=== PATIENT | female | born 1960 | race Caucasian/White ===

== ENCOUNTER 2018-12-30 19:53 | Emergency (ER) | payer OTHER, MEDICAID, SELFPAY ==
--- NOTE | 2018-12-30 19:57 | ED_ITS ---
HPI - URI/Sore Throat <TARIQ Levin - Last Filed: 12/30/18 21:42> General Chief Complaint: Upper Respiratory Symptoms Stated Complaint: thinks she has pneumonia,cough Time Seen by Provider: 12/30/18 19:57 Source: patient Mode of arrival: ambulatory Limitations: no limitations History of Present Illness HPI Narrative: 58-year-old female that is an everyday smoker and occasionally uses meth here for complaint of having cough over the past few days. She reports the cough has been productive. She she reports having chills. Generalized malaise. Positive p.o. intake. No nausea or vomiting. She denies any contacts being sick. She reportedly using meth just prior to arrival. She reports she smokes the meth. He had no other concerns or complaints. MD Complaint: cough Related Data Previous Rx's Medication Instructions Recorded doxycycline hyclate 100 mg PO DAILY #13 cap 12/30/18 Allergies Allergy/AdvReac Type Severity Reaction Status Date / Time ibuprofen Allergy Verified 12/30/18 20:12 Review of Systems <TARIQ Levin - Last Filed: 12/30/18 21:42> Constitutional Reports chills, Denies fever(s), Denies lethargy, Reports malaise and Denies weakness Eyes Denies change in vision, Denies eye discharge, Denies irritation and Denies loss of vision ENT Ears, Nose, Mouth, and Throat: Denies change in voice, Denies neck pain, Denies sore throat and Denies throat swelling Cardiovascular Denies chest pain, Denies irregular heart rhythm, Denies lightheadedness, Denies palpitations and Denies orthopnea Respiratory Reports cough and Denies wheezing Gastrointestinal Gastrointestinal: Denies abdominal pain, Denies change in bowel habits, Denies diarrhea, Denies nausea and Denies vomiting Genitourinary Denies hematuria, Denies flank pain, Denies urinary incontinence and Denies urinary urgency Musculoskeletal Denies neck pain Integumentary/Breasts Denies pruritus, Denies erythema, Denies rash and Denies wounds Neurologic Denies loss of vision and Denies weakness Endocrine Denies palpitations Hematologic/Lymphatic Denies easy bruising Allergic/Immunologic Denies urticaria, Denies throat swelling and Denies wheezing PFSH <TARIQ Levin - Last Filed: 12/30/18 21:42> Social History Smoking Status: Current every day smoker Social History Smoking Status: Current every day smoker Exam <TARIQ Levin - Last Filed: 12/30/18 21:42> Initial Vital Signs Initial Vital Signs: Vital Signs Temperature 99.1 F 12/30/18 20:13 Pulse Rate 110 H 12/30/18 20:13 Respiratory Rate 22 12/30/18 20:13 Blood Pressure 106/73 12/30/18 20:13 Pulse Oximetry 99 12/30/18 20:13 Const General: cooperative and well developed Nutritional Appearance: well nourished Orientation: alert, awake, oriented x3 and not confused HENMT Mouth: oral mucosae normal and moist mucous membranes Throat: posterior oropharynx normal Eyes Conjunctivae: conjunctivae normal Sclera: sclerae normal Pupils: PERRL EOM: EOM intact bilaterally Resp Effort & Inspection: normal respiratory effort, able to speak in complete s entences, no respiratory distress and no use of accessory muscles Auscultation: clear to auscultation bilaterally, no rales, no rhonchi and no wheezes Cardio Rate: regular rate Rhythm: regular rhythm Heart Sounds: no click, no gallops, no murmurs and no rubs Pulses: normal peripheral pulses Skin General: no rashes or lesions noted, No jaundice and No petechiae Neuro General: alert, oriented x3, gait normal and no focal motor deficits Speech: speech normal Psych Affect: anxious affect <Noam Tan DO - Last Filed: 12/31/18 05:42> Initial Vital Signs Initial Vital Signs: Vital Signs Temperature 99.1 F 12/30/18 20:13 Pulse Rate 110 H 12/30/18 20:13 Respiratory Rate 22 12/30/18 20:13 Blood Pressure 106/73 12/30/18 20:13 Pulse Oximetry 99 12/30/18 20:13 Course <TARIQ Levin - Last Filed: 12/30/18 21:42> Orders Ordered: Discontinued Medications Doxycycline Hyclate (Vibramycin) 100 mg PO NOW ONE Stop: 12/30/18 21:32 Last Admin: 12/30/18 21:45 Dose: 100 mg Potassium Chloride (Klor-Con M20) 40 meq PO NOW ONE Stop: 12/30/18 20:40 Last Admin: 12/30/18 20:54 Dose: 40 meq Vital Signs - 8 hr 12/30/18 22:15 Pulse Rate 100 H Respiratory Rate 28 H Blood Pressure 97/57 L Pulse Oximetry 97 <Noam Tan DO - Last Filed: 12/31/18 05:42> Orders Ordered: Discontinued Medications Doxycycline Hyclate (Vibramycin) 100 mg PO NOW ONE Stop: 12/30/18 21:32 Last Admin: 12/30/18 21:45 Dose: 100 mg Potassium Chloride (Klor-Con M20) 40 meq PO NOW ONE Stop: 12/30/18 20:40 Last Admin: 12/30/18 20:54 Dose: 40 meq Vital Signs - 8 hr 12/30/18 22:15 Pulse Rate 100 H Respiratory Rate 28 H Blood Pressure 97/57 L Pulse Oximetry 97 MDM - URI/Sore Throat <TARIQ Levin - Last Filed: 12/30/18 21:42> Lab Data Result diagrams: 12/30/18 20:20 12/30/18 20:20 Lab Results 12/30/18 12/30/18 12/30/18 Range/Units 20:05 20:20 20:20 WBC 11.2 H (4.5-11.0) X10^3/uL RBC 4.34 (4.0-5.2) X10^6/uL Hgb 12.0 (12.0-16.0) g/dL Hct 35.9 L (36-46) % MCV 82.7 (80-100) fL MCH 27.7 (26-34) PG MCHC 33.4 (30-36) % RDW 13.8 (11.6-14.8) % Plt Count 228 (150-400) X10^3/uL Neut % (Auto) 75.1 H (50-75) % Lymph % (Auto) 14.9 L (25-40) % Hodgeman % (Auto) 7.8 (3-14) % Eos % (Auto) 1.2 L (2-4) % Baso % (Auto) 1.0 (0-2) % Neut # (Auto) 8400 H (0483-0006) /uL Lymph # (Auto) 1700 (6874-8616) /uL Hodgeman # (Auto) 900 (0-900) /uL Eos # (Auto) 100 (0-450) /uL Baso # (Auto) 100 (0-100) /uL Sodium (137-145) mmol/L Potassium (3.4-5.1) mmol/L Chloride (98-107) mmol/L Carbon Dioxide (22-32) mmol/L BUN (7-17) mg/dL Creatinine (0.52-1.04) mg/dL Estimated GFR (>60) mL/min BUN/Creatinine Ratio (6-22) Glucose (70-100) mg/dL Lactate (0.7-2.1) mmol/L Calcium (8.4-10.2) mg/dL Total Bilirubin (0.2-1.3) mg/dL AST (14-36) IU/L ALT (9-52) IU/L Alkaline Phosphatase (38-126) U/L Total Protein (6.3-8.2) g/dL Albumin (3.5-5.0) g/dL Globulin (1.7-4.1) g/dL Albumin/Globulin Ratio (1.0-2.8) Procalcitonin < 0.05 (<0.5) ng/mL Influenza A & B (PCR) Negative (Negative) 12/30/18 12/30/18 Range/Units 20:20 20:20 WBC (4.5-11.0) X10^3/uL RBC (4.0-5.2) X10^6/uL Hgb (12.0-16.0) g/dL Hct (36-46) % MCV (80-100) fL MCH (26-34) PG MCHC (30-36) % RDW (11.6-14.8) % Plt Count (150-400) X10^3/uL Neut % (Auto) (50-75) % Lymph % (Auto) (25-40) % Hodgeman % (Auto) (3-14) % Eos % (Auto) (2-4) % Baso % (Auto) (0-2) % Neut # (Auto) (3965-5849) /uL Lymph # (Auto) (5521-6773) /uL Hodgeman # (Auto) (0-900) /uL Eos # (Auto) (0-450) /uL Baso # (Auto) (0-100) /uL Sodium 134 L (137-145) mmol/L Potassium 3.2 L (3.4-5.1) mmol/L Chloride 98 (98-107) mmol/L Carbon Dioxide 26 (22-32) mmol/L BUN 14 (7-17) mg/dL Creatinine 0.60 (0.52-1.04) mg/dL Estimated GFR > 60.0 (>60) mL/min BUN/Creatinine Ratio 23.3 H (6-22) Glucose 132 H (70-100) mg/dL Lactate 1.4 (0.7-2.1) mmol/L Calcium 8.5 (8.4-10.2) mg/dL Total Bilirubin 0.4 (0.2-1.3) mg/dL AST 42 H (14-36) IU/L ALT 36 (9-52) IU/L Alkaline Phosphatase 83 (38-126) U/L Total Protein 6.8 (6.3-8.2) g/dL Albumin 4.1 (3.5-5.0) g/dL Globulin 2.7 (1.7-4.1) g/dL Albumin/Globulin Ratio 1.5 (1.0-2.8) Procalcitonin (<0.5) ng/mL Influenza A & B (PCR) (Negative) Imaging Data Chest x-ray: Radiologist's impression: [address] [address] XRay Report Signed Patient: Bryan Cuba#: [id number] : 2Acct:[id number] Age/Sex: 58 / FDate of Service: 12/30/18 Loc: ED Accession Number: [id number] Procedure: XR chest 2V Ordering Provider: Davin Hays PROCEDURE: XR CHEST 2V INDICATIONS: Cough over last several TECHNIQUE: 2 views of the chest were acquired. COMPARISON: None. FINDINGS: Surgical changes and devices: None. Lungs and pleura: Increased opacity is noted in the medial aspect of the right lower lobe concerning for early pneumonia. No pleural effusions or pneumothorax. Mediastinum: Mediastinal contours are normal. Heart size is normal. Bones and chest wall: No suspicious bony abnormalities. Soft tissues appear unremarkable. IMPRESSION: Increased opacification medial aspect of the right lower lobe suspicious for pneumonia. Dictated by: Clara Stokes MD, PhD on 12/30/2018 at 20:49 Approved by: Clara Stokes MD, PhD on 12/30/2018 at 20:50 [facility] Narrative Medical decision making narrative: CBC shows mildly elevated white count 11.2. and elevated neutrophils at 8400. Chemistry panel shows potassium at 3.2. Otherwise is unremarkable. Influenza swab was obtained and was negative. Chest x-ray shows opacification to the right lower lobe suspicious for pneumonia. She is placed on doxycycline. She was given potassium in the emergency room for her hypo kalemia. Patient is encouraged to not use tobacco or meth. Plenty of fluids and rest well-balanced diet. Follow up with primary care provider. Return emergency room for any worsening symptoms. <Noam Tan DO - Last Filed: 12/31/18 05:42> Lab Data Lab Results 12/30/18 12/30/18 12/30/18 Range/Units 20:05 20:20 20:20 WBC 11.2 H (4.5-11.0) X10^3/uL RBC 4.34 (4.0-5.2) X10^6/uL Hgb 12.0 (12.0-16.0) g/dL Hct 35.9 L (36-46) % MCV 82.7 (80-100) fL MCH 27.7 (26-34) PG MCHC 33.4 (30-36) % RDW 13.8 (11.6-14.8) % Plt Count 228 (150-400) X10^3/uL Neut % (Auto) 75.1 H (50-75) % Lymph % (Auto) 14.9 L (25-40) % Hodgeman % (Auto) 7.8 (3-14) % Eos % (Auto) 1.2 L (2-4) % Baso % (Auto) 1.0 (0-2) % Neut # (Auto) 8400 H (1306-8467) /uL Lymph # (Auto) 1700 (6832-2004) /uL Hodgeman # (Auto) 900 (0-900) /uL Eos # (Auto) 100 (0-450) /uL Baso # (Auto) 100 (0-100) /uL Sodium (137-145) mmol/L Potassium (3.4-5.1) mmol/L Chloride (98-107) mmol/L Carbon Dioxide (22-32) mmol/L BUN (7-17) mg/dL Creatinine (0.52-1.04) mg/dL Estimated GFR (>60) mL/min BUN/Creatinine Ratio (6-22) Glucose (70-100) mg/dL Lactate (0.7-2.1) mmol/L Calcium (8.4-10.2) mg/dL Total Bilirubin (0.2-1.3) mg/dL AST (14-36) IU/L ALT (9-52) IU/L Alkaline Phosphatase (38-126) U/L Total Protein (6.3-8.2) g/dL Albumin (3.5-5.0) g/dL Globulin (1.7-4.1) g/dL Albumin/Globulin Ratio (1.0-2.8) Procalcitonin < 0.05 (<0.5) ng/mL Influenza A & B (PCR) Negative (Negative) 12/30/18 12/30/18 Range/Units 20:20 20:20 WBC (4.5-11.0) X10^3/uL RBC (4.0-5.2) X10^6/uL Hgb (12.0-16.0) g/dL Hct (36-46) % MCV (80-100) fL MCH (26-34) PG MCHC (30-36) % RDW (11.6-14.8) % Plt Count (150-400) X10^3/uL Neut % (Auto) (50-75) % Lymph % (Auto) (25-40) % Hodgeman % (Auto) (3-14) % Eos % (Auto) (2-4) % Baso % (Auto) (0-2) % Neut # (Auto) (9116-9259) /uL Lymph # (Auto) (7431-0353) /uL Hodgeman # (Auto) (0-900) /uL Eos # (Auto) (0-450) /uL Baso # (Auto) (0-100) /uL Sodium 134 L (137-145) mmol/L Potassium 3.2 L (3.4-5.1) mmol/L Chloride 98 (98-107) mmol/L Carbon Dioxide 26 (22-32) mmol/L BUN 14 (7-17) mg/dL Creatinine 0.60 (0.52-1.04) mg/dL Estimated GFR > 60.0 (>60) mL/min BUN/Creatinine Ratio 23.3 H (6-22) Glucose 132 H (70-100) mg/dL Lactate 1.4 (0.7-2.1) mmol/L Calcium 8.5 (8.4-10.2) mg/dL Total Bilirubin 0.4 (0.2-1.3) mg/dL AST 42 H (14-36) IU/L ALT 36 (9-52) IU/L Alkaline Phosphatase 83 (38-126) U/L Total Protein 6.8 (6.3-8.2) g/dL Albumin 4.1 (3.5-5.0) g/dL Globulin 2.7 (1.7-4.1) g/dL Albumin/Globulin Ratio 1.5 (1.0-2.8) Procalcitonin (<0.5) ng/mL Influenza A & B (PCR) (Negative) Discharge Plan Departure Patient Disposition: Home Clinical Impression: Hypokalemia Community acquired pneumonia Qualifiers: Laterality: right Lung location: lower lobe of lung Qualified Code(s): J18.1 - Lobar pneumonia, unspecified organism Discharge Date/Time: 12/30/18 22:16 Interventions: ED Discharge Assessment Last Done: 12/30/18 22:15 Instructions: Pneumonia-Adult Activity Restrictions/Additional Instructions: Chest x-ray shows some opacification to the right lower lung suspicious for pneumonia. You have been placed on an antibiotic called doxycycline use as directed. Fill prescription tomorrow morning to start taking as directed. Plenty of fluids and rest. Laboratory results show low potassium as well be sure your eating a good adequate diet. You were given some potassium in the emergency room to help correct the level. Follow up with her primary care provider. Return emergency room for any worsening symptoms. Recommend not smoking or using meth Prescriptions: New doxycycline hyclate 100 mg capsule 100 mg PO DAILY Qty: 13 RF: 0 Referrals: [facility] [Provider Group] <Noam Tan DO - Last Filed: 12/31/18 05:42> Cosign ED Attending Cosignature Attestation: I was immediately available in the dep artment for consultation. Documentation has been reviewed. I agree with assessment and plan.
--- NOTE | 2018-12-30 20:05 | DI.RAD.S_ITS ---
PROCEDURE: XR CHEST 2V INDICATIONS: Cough over last several TECHNIQUE: 2 views of the chest were acquired. COMPARISON: None. FINDINGS: Surgical changes and devices: None. Lungs and pleura: Increased opacity is noted in the medial aspect of the right lower lobe concerning for early pneumonia. No pleural effusions or pneumothorax. Mediastinum: Mediastinal contours are normal. Heart size is normal. Bones and chest wall: No suspicious bony abnormalities. Soft tissues appear unremarkable. IMPRESSION: Increased opacification medial aspect of the right lower lobe suspicious for pneumonia. Dictated by: Clara Stokes MD, PhD on 12/30/2018 at 20:49 Approved by: Clara Stokes MD, PhD on 12/30/2018 at 20:50
[2018-12-30 20:13] VITALS: BP 106/73; PULSE 110; RESP 22; TEMP 37.3; O2SAT 99
[2018-12-30 20:31] LABS: Add Manual Diff / Slide Review NO; Basophils Absolute Auto 100 /uL (0-100); Eosinophils Absolute Auto 100 /uL (0-450); Eosinophils Percent Auto 1.2 % (2-4); Hematocrit 35.9 % (36-46); Lymphocytes Absolute Auto 1700 /uL (1100-4500); Lymphocytes Percent Auto 14.9 % (25-40); Mean Corpuscular HGB Conc 33.4 % (30-36); Mean Corpuscular Hemoglobin 27.7 PG (26-34); Mean Corpuscular Volume 82.7 fL (80-100); Monocytes Absolute Auto 900 /uL (0-900); Monocytes Percent Auto 7.8 % (3-14); Neutrophils Absolute Auto 8400 /uL (1500-7000); Neutrophils Percent Auto 75.1 % (50-75); Platelet Count 228 X10^3/uL (150-400); Red Blood Cell Count 4.34 X10^6/uL (4.0-5.2); Red Cell Distribution Width 13.8 % (11.6-14.8); White Blood Cell Count 11.2 X10^3/uL (4.5-11.0)
[2018-12-30 20:38] LABS: Alanine Aminotransferase 36 IU/L (9-52); Albumin 4.1 g/dL (3.5-5.0); Albumin Globulin Ratio 1.5 (1.0-2.8); Alkaline Phosphatase 83 U/L (38-126); Aspartate Aminotransferase 42 IU/L (14-36); BUN Creatinine Ratio 23.3 (6-22); Bilirubin Total 0.4 mg/dL (0.2-1.3); Blood Urea Nitrogen 14 mg/dL (7-17); Calcium 8.5 mg/dL (8.4-10.2); Carbon Dioxide 26 mmol/L (22-32); Chloride 98 mmol/L (98-107); Estimated Glomerular Filt Rate > 60.0 mL/min (>60); Globulin 2.7 g/dL (1.7-4.1); Glucose 132 mg/dL (70-100); HEMOLYSIS < 15 (0-50); Lactate (Lactic Acid) 1.4 mmol/L (0.7-2.1); Potassium 3.2 mmol/L (3.4-5.1); Sodium 134 mmol/L (137-145); Total Protein 6.8 g/dL (6.3-8.2)
[2018-12-30 20:52] LABS: Procalcitonin < 0.05 ng/mL (<0.5)
[2018-12-30 20:52] LABS: Influenza A and B by PCR Rapid Negative (Negative)
[2018-12-30] MEDS: POTASSIUM CHLORIDE 20 MEQ TAB 40 MEQ PO (20:54)
[2018-12-30] MEDS: DOXYCYCLINE HYCLATE 100 MG TABLET PO (21:45)
[2018-12-30 22:15] VITALS: BP 97/57; PULSE 100; RESP 28; O2SAT 97
== END 2018-12-30 22:16 | disposition home or self-care (01) ==
PROVIDERS: Emergency Provider Nurse Practitioner Family
DX: E87.6 Hypokalemia (principal); J18.1 Lobar pneumonia, unspecified organism
CPT/HCPCS: 36591; 71046; 80053; 83605; 84145; 85025; 87400; 99282; 99284

== ENCOUNTER 2019-08-21 12:32 | Emergency (ER) | payer OTHER, MEDICAID, SELFPAY ==
[2019-08-21 12:35] VITALS: BP 130/81; PULSE 116; RESP 24; TEMP 37.4; O2SAT 95
--- NOTE | 2019-08-21 12:42 | DI.RAD.S_ITS ---
PROCEDURE: XR FINGER LT MIN 2V INDICATIONS: Left thumb swelling TECHNIQUE: AP hand, 2 views of the left first finger(s) acquired. COMPARISON: None. FINDINGS: Bones: No fractures or dislocations. No suspicious bony lesions. No periosteal reaction or gary osseous destruction. Soft tissues: No suspicious soft tissue calcifications. Soft tissue swelling is noted and infectious cellulitis cannot be excluded. IMPRESSION: No gary evidence of osteomyelitis. Plain film radiographs can be insensitive to osteomyelitis during the initial 15 days of the disease process. If there is clinical concern for osteomyelitis, then three-phase nuclear medicine bone scan should be considered for further evaluation. Dictated by: Clara Stokes MD, PhD on 08/21/2019 at 12:03 Approved by: Clara Stokes MD, PhD on 08/21/2019 at 12:18
--- NOTE | 2019-08-21 12:53 | ED.FEVER ---
HPI - Fever General Chief Complaint: Fever Stated Complaint: INFECTED THUMB LEFT HAND Time Seen by Provider: 08/21/19 12:42 Source: patient Mode of arrival: Ambulatory Limitations: no limitations History of Present Illness HPI Narrative: Patient is a 59-year-old female who states that several days ago she was poked in the side of her left thumb by small piece of metal. Since then she has had increasing pain and swelling in the thumb. She does have pain when she bends at the joint of the thumb. She does have some pain in her hand over the redness and swelling ground extend up this far. She has also had subjective fevers. He has never had anything like this before. Has not tried anything for symptoms prior to arrival Related Data Previous Rx's Medication Instructions Recorded clindamycin HCl 300 mg PO QID 10 Days #40 cap 08/21/19 Allergies Allergy/AdvReac Type Severity Reaction Status Date / Time ibuprofen Allergy Verified 12/30/18 20:12 Review of Systems Constitutional Constitutional: Reports fever(s) Cardiovascular Cardiovascular: Denies chest pain and Denies dyspnea Respiratory Respiratory: Denies dyspnea Gastrointestinal Gastrointestinal: Denies abdominal pain Musculoskeletal Comments: Left thumb and hand pain Integumentary/Breasts Comments: Redness and swelling to the left Neurologic Comments: Tingling to the left thumb Hematologic/Lymphatic Hematologic/Lymphatic: Denies easy bleeding and Denies easy bruising Allergic/Immunologic Allergic/Immunologic: Denies urticaria Patient History Medical History Patient denies medical problems (Acute) Social History Smoking Status: Current every day smoker Social History Smoking Status: Current every day smoker alcohol intake frequency: 0-2 drinks per day Substance Use Type: does not use and methamphetamine Exam Initial Vital Signs Initial Vital Signs: Vital Signs Temperature 99.3 F 08/21/19 12:35 Pulse Rate 116 H 08/21/19 12:35 Respiratory Rate 24 08/21/19 12:35 Blood Pressure 130/81 08/21/19 12:35 Pulse Oximetry 95 08/21/19 12:35 Const General: cooperative, well developed, well groomed and anxious Orientation: alert, awake and oriented x3 Resp Effort & Inspection: normal respiratory effort Cardio Rate: tachycardic Pulses: radial pulses present on the left Skin Other: Patient has give area of redness to the left thumb. Predominantly on the palmar aspect. It starts just proximal to the MCP joint and extends up to the tip of the thumb. There is a 1 cm x 1 cm area of white very tense tissue on the medial aspect of the left thumb right next to the nail. No active bleeding. Neuro Cognition: normal cognition Speech: speech normal Sensory Exam: no sensory deficits noted Extrem Other: Redness and swelling to the left thumb. Limited range of motion of the IP joint but she can flex and extend at the MCP joint Procedures Abscess I/D Site: other (Left thumb) Side (if applicable): left Local Anesthetic: lidocaine 1% Amount of anesthesia used (mL): 8 Technique: incised with #11 blade Irrigation: No Packing used?: none Nerve Block Nerve Block 1: Time out performed: Yes Local Anesthetic: lidocaine 1% Amount of anesthesia used (mL): 8 Side: left Nerve Blocks: digital Procedure Successful: Yes Patient Tolerated Procedure: Well and No complications Complications: none Course Orders Ordered: ED Orders 08/21/19 12:42 XR finger LT min 2V Stat 08/21/19 12:43 EKG-12 Lead Stat 08/21/19 13:15 Basic Metabolic Panel Stat C-Reactive Protein Quant Stat Complete Blood Count AUTO DIFF Stat Erythrocyte Sedimentation Rate Stat Lactate (Lactic Acid) Stat Procalcitonin Stat Discontinued Medications Hydromorphone HCl (Dilaudid) 0.5 mg IV NOW ONE Stop: 08/21/19 13:22 Last Admin: 08/21/19 13:25 Dose: 0.5 mg Documented by: OLE Sodium Chloride (Normal Saline 0.9%) 1,000 mls @ 125 mls/hr IV CONT DESTIN Last Infusion: 08/21/19 16:26 Dose: 0 mls/hr Documented by: Admin: 08/21/19 13:25 Dose: 125 mls/hr Documented by: OLE Ketorolac Tromethamine (Toradol) 15 mg IV NOW ONE Stop: 08/21/19 13:22 Last Admin: 08/21/19 13:25 Dose: 15 mg Documented by: OLE Lidocaine HCl (Xylocaine 1% (Pf)) 6 ml INJ NOW ONE Stop: 08/21/19 13:42 Last Admin: 08/21/19 14:09 Dose: 6 ml Documented by: OLE Lidocaine HCl (Xylocaine 1% (Pf)) 4 ml INJ NOW ONE Stop: 08/21/19 14:40 Last Admin: 08/21/19 14:44 Dose: 4 ml Documented by: GARFIELD Lorazepam (Ativan) 1 mg PO NOW ONE Stop: 08/21/19 13:07 Last Admin: 08/21/19 13:25 Dose: 1 mg Documented by: OLE Vital Signs Vital signs: Vital Signs - 8 hr 08/21/19 12:35 08/21/19 14:34 08/21/19 15:00 Temperature 99.3 F Pulse Rate 116 H 88 89 Respiratory Rate 24 14 16 Blood Pressure 130/81 Blood Pressure [Right Arm] 104/62 115/72 Pulse Oximetry 95 97 98 08/21/19 16:06 Temperature Pulse Rate 74 Respiratory Rate 14 Blood Pressure Blood Pressure [Right Arm] 102/74 Pulse Oximetry 95 MDM - Fever Lab Data Attestation: I reviewed the patient's lab results. Result diagrams: 08/21/19 13:15 08/21/19 13:15 Labs: Lab Results 08/21/19 08/21/19 08/21/19 Range/Units 13:15 13:15 13:15 WBC 12.5 H (4.5-11.0) X10^3/uL RBC 4.42 (4.0-5.2) X10^6/uL Hgb 12.7 (12.0-16.0) g/dL Hct 37.2 (36-46) % MCV 84.3 (80-100) fL MCH 28.7 (26-34) PG MCHC 34.0 (30-36) % RDW 13.6 (11.6-14.8) % Plt Count 386 (150-400) X10^3/uL Neut % (Auto) 80.0 H (50-75) % Lymph % (Auto) 13.1 L (25-40) % Armstrong % (Auto) 5.3 (3-14) % Eos % (Auto) 0.8 L (2-4) % Baso % (Auto) 0.8 (0-2) % Neut # (Auto) 32878 H (2447-0462) /uL Lymph # (Auto) 1600 (5758-0010) /uL Armstrong # (Auto) 700 (0-900) /uL Eos # (Auto) 100 (0-450) /uL Baso # (Auto) 100 (0-100) /uL ESR 24 H (0-20) MM/HR Sodium 136 L (137-145) mmol/L Potassium 3.5 (3.4-5.1) mmol/L Chloride 99 (98-107) mmol/L Carbon Dioxide 25 (22-32) mmol/L BUN 14 (7-17) mg/dL Creatinine 0.60 (0.52-1.04) mg/dL Estimated GFR > 60.0 (>60) mL/min BUN/Creatinine Ratio 23.3 H (6-22) Glucose 172 H (70-100) mg/dL Lactate (0.7-2.1) mmol/L Calcium 8.9 (8.4-10.2) mg/dL C-Reactive Protein 4.8 H (<1.0) mg/dL Procalcitonin < 0.05 (<0.5) ng/mL 08/21/ Range/Units 13:15 WBC (4.5-11.0) X10^3/uL RBC (4.0-5.2) X10^6/uL Hgb (12.0-16.0) g/dL Hct (36-46) % MCV (80-100) fL MCH (26-34) PG MCHC (30-36) % RDW (11.6-14.8) % Plt Count (150-400) X10^3/uL Neut % (Auto) (50-75) % Lymph % (Auto) (25-40) % Armstrong % (Auto) (3-14) % Eos % (Auto) (2-4) % Baso % (Auto) (0-2) % Neut # (Auto) (9556-7236) /uL Lymph # (Auto) (4536-9771) /uL Armstrong # (Auto) (0-900) /uL Eos # (Auto) (0-450) /uL Baso # (Auto) (0-100) /uL ESR (0-20) MM/HR Sodium (137-145) mmol/L Potassium (3.4-5.1) mmol/L Chloride (98-107) mmol/L Carbon Dioxide (22-32) mmol/L BUN (7-17) mg/dL Creatinine (0.52-1.04) mg/dL Estimated GFR (>60) mL/min BUN/Creatinine Ratio (6-22) Glucose (70-100) mg/dL Lactate 2.1 (0.7-2.1) mmol/L Calcium (8.4-10.2) mg/dL C-Reactive Protein (<1.0) mg/dL Procalcitonin (<0.5) ng/mL Imaging Data Finger x-ray: Radiologist's impression: [address] [address] XRay Report Signed Patient: Bryan Cuba#: [id number] : 2Acct:[id number] Age/Sex: 59 / FDate of Service: 08/21/19 Loc: ED Accession Number: [id number] Procedure: XR finger LT min 2V Ordering Provider: Ryne Peters D.O. PROCEDURE: XR FINGER LT MIN 2V INDICATIONS: Left thumb swelling TECHNIQUE: AP hand, 2 views of the left first finger(s) acquired. COMPARISON: None. FINDINGS: Bones: No fractures or dislocations. No suspicious bony lesions. No periosteal reaction or gary osseous destruction. Soft tissues: No suspicious soft tissue calcifications. Soft tissue swelling is noted and infectious cellulitis cannot be excluded. IMPRESSION: No gary evidence of osteomyelitis. Plain film radiographs can be insensitive to osteomyelitis during the initial 15 days of the disease process. If there is clinical concern for osteomyelitis, then three-phase nuclear medicine bone scan should be considered for further evaluation. Dictated by: Clara Stokes MD, PhD on 08/21/2019 at 12:03 Approved by: Clara Stokes MD, PhD on 08/21/2019 at 12:18 MDM Narrative Medical decision making narrative: Patient's physical exam today is consistent with a felon of the left thumb. Patient was extremely anxious about any procedure. A digital nerve block was performed and a small incision was made over the area of greatest fluctuance which was on the medial aspect of the left thumb. There was a large amount of purulent material that was evacuated. Hemostat was used to break up any loculations. Patient did tolerate this very well despite her anxiety to the procedure. Will send her home on antibiotics. She was given care instructions and return precautions. I have low suspicion that she has a septic joint. Do not feel patient needs admitted to the hospital for IV antibiotics. There is no nail involvement. She is here with family/friends. They all expressed understanding and agreement plan Discharge Plan Departure Patient Disposition: Home Clinical Impression: Felon of finger of left hand Discharge Date/Time: 08/21/19 16:51 Instructions: DI for Le Activity Restrictions/Additional Instructions: Take the antibiotics as directed. You can wash your hands like normal. You can use soap and water like normal. Contact your primary provider for a follow-up. You can take Tylenol and/or ibuprofen for any discomfort. Return to the emergency department for any new or worsening symptoms. Prescriptions: New clindamycin HCl 300 mg capsule 300 mg PO QID 10 Days Qty: 40 RF: 0
[2019-08-21] MEDS: SODIUM CHLORIDE 0.9% 1,000 ML 125 ML IV (13:25)
[2019-08-21] MEDS: KETOROLAC 60 MG/2 ML VIAL 15 MG IV (13:25)
[2019-08-21] MEDS: HYDROMORPHONE 0.5 MG INJ IV (13:25)
[2019-08-21] MEDS: LORazepam 0.5 MG TABLET 1 MG PO (13:25)
[2019-08-21 13:27] LABS: Add Manual Diff / Slide Review NO; Basophils Absolute Auto 100 /uL (0-100); Basophils Percent Auto 0.8 % (0-2); Eosinophils Absolute Auto 100 /uL (0-450); Eosinophils Percent Auto 0.8 % (2-4); Hematocrit 37.2 % (36-46); Hemoglobin 12.7 g/dL (12.0-16.0); Lymphocytes Absolute Auto 1600 /uL (1100-4500); Lymphocytes Percent Auto 13.1 % (25-40); Mean Corpuscular Hemoglobin 28.7 PG (26-34); Mean Corpuscular Volume 84.3 fL (80-100); Monocytes Absolute Auto 700 /uL (0-900); Monocytes Percent Auto 5.3 % (3-14); Neutrophils Absolute Auto 10000 /uL (1500-7000); Platelet Count 386 X10^3/uL (150-400); Red Blood Cell Count 4.42 X10^6/uL (4.0-5.2); Red Cell Distribution Width 13.6 % (11.6-14.8); White Blood Cell Count 12.5 X10^3/uL (4.5-11.0)
[2019-08-21 13:41] LABS: Lactate (Lactic Acid) 2.1 mmol/L (0.7-2.1)
[2019-08-21 13:43] LABS: BUN Creatinine Ratio 23.3 (6-22); Blood Urea Nitrogen 14 mg/dL (7-17); C-Reactive Protein Quant 4.8 mg/dL (<1.0); Calcium 8.9 mg/dL (8.4-10.2); Carbon Dioxide 25 mmol/L (22-32); Chloride 99 mmol/L (98-107); Estimated Glomerular Filt Rate > 60.0 mL/min (>60); Glucose 172 mg/dL (70-100); HEMOLYSIS < 15 (0-50); Potassium 3.5 mmol/L (3.4-5.1); Sodium 136 mmol/L (137-145)
[2019-08-21 13:52] LABS: Erythrocyte Sedimentation Rate 24 MM/HR (0-20)
[2019-08-21 14:00] LABS: Procalcitonin < 0.05 ng/mL (<0.5)
[2019-08-21] MEDS: LIDOCAINE 1% (PF) 6 ML INJ (14:09)
[2019-08-21 14:34] VITALS: BP 104/62; PULSE 88; RESP 14; O2SAT 97
--- NOTE | 2019-08-21 14:37 | PC.NURSE ---
Left thumb hot, swollen w/ black & white parts. Denies h/o diabetes.
[2019-08-21] MEDS: LIDOCAINE 1% (PF) 4 ML INJ (14:44)
[2019-08-21 15:00] VITALS: BP 115/72; PULSE 89; RESP 16; O2SAT 98
[2019-08-21 16:06] VITALS: BP 102/74; PULSE 74; RESP 14; O2SAT 95
== END 2019-08-21 16:51 | disposition home or self-care (01) ==
PROVIDERS: Emergency Provider Emergency Medicine
DX: L03.012 Cellulitis of left finger (principal); R00.0 Tachycardia, unspecified
CPT/HCPCS: 10060; 36415; 64450; 73140; 80048; 83605; 84145; 85025; 85651; 86140; 93005; 96361; 96374; 96375; 99283; 99285; J1170; J1885